=== PATIENT | male | born 1975 | race Caucasian/White ===

== ENCOUNTER 2023-12-14 14:00 | Emergency (ER) | payer MEDICAID ==
[~2023-12-14] VITALS: Ht 177.8 cm; Wt 115.7 kg
[2023-12-14 14:00] VITALS: BP_SYST 141; PULSE 104; RESP 18; TEMP 97.7; O2SAT 94
[~2023-12-14 14:00] MED LIST: ALBMDI INH; APIX2.5T PO; ASCO120G2 MC; DEC4 PO; LEVO750T64 PO; VITD400 PO; ZINC50TA69 PO
[2023-12-14] MEDS: HYDROcodone/ACETAMIN 10-325 MG TAB PO ONE (14:39)
[2023-12-14] MEDS: KETOROLAC TROMETHAMINE 60 MG/2 ML VIAL IM ONE (14:40)
[2023-12-14 14:49] LABS: BASOPHILS # (AUTO) 0.1 K/uL (0.0-0.2); BASOPHILS % (AUTO) 0.5 % (0.0-2.0); EOSINOPHILS # (AUTO) 0.1 K/uL (0.0-0.4); EOSINOPHILS % (AUTO) 1.1 % (0.0-4.0); HEMOGLOBIN 14.5 g/dL (14.0-18.0); LYMPHOCYTES # (AUTO) 1.4 K/uL (1.0-5.5); LYMPHOCYTES % (AUTO) 12.4 % (20.5-51.5); MEAN CORPUSCULAR HEMOGLOBIN 31 pg (27-31); MEAN CORPUSCULAR HGB CONC 34 % (32-36); MEAN CORPUSCULAR VOLUME 91 fL (79.0-98.0); MONOCYTES # (AUTO) 1.1 K/uL (0.0-1.0); MONOCYTES % (AUTO) 9.6 % (1.7-9.3); NEUTROPHILS # (AUTO) 8.7 K/uL (1.8-7.7); NEUTROPHILS % (AUTO) 76.4 % (40.0-70.0); PLATELET COUNT (AUTO) 399 K/uL (130-430); RED BLOOD CELL COUNT(AUTO) 4.73 MIL/uL (4.2-6.2); RED CELL DISTRIBUTION WIDTH 14.4 % (9.0-15.0); WHITE BLOOD COUNT (AUTO) 11.4 K/uL (4.8-10.8)
[2023-12-14 14:51] LABS: ERYTHROCYTE SEDIMENTATION RATE > 130 MM/HR (0-15)
[2023-12-14 15:21] LABS: PROTHROMBIN TIME 10.5 SECS (9.5-12.5)
[2023-12-14 15:51] LABS: CALCIUM 9.3 mg/dL (8.4-11.0); CREATININE 0.94 mg/dL (0.55-1.30); POTASSIUM 4.2 mmol/L (3.5-5.1); URIC ACID 6.2 mg/dL (2.4-7.0)
[2023-12-14] MEDS ORDERED: IBUP-1971 PO (15:56)
[2023-12-14] MEDS ORDERED: HYDR-3927 PO (15:56)
[2023-12-14] MEDS ORDERED: ALLO100T PO (15:56)
[2023-12-14 16:07] VITALS: BP_SYST 149; PULSE 88; RESP 20; TEMP 97.6; O2SAT 98
== END 2023-12-14 16:08 | disposition home or self-care (01) ==
LOC: SED 14:00
DX: M10.9 Gout, unspecified (principal); Z79.899 Other long term (current) drug therapy; Z79.52 Long term (current) use of systemic steroids; Z79.01 Long term (current) use of anticoagulants
CPT/HCPCS: 99284; 80048; 84550; 85025; 85610; 85651; 85730; 36415; 73630; 96372; 82397; J1885